=== PATIENT | male | born 1970 | race Caucasian/White ===

== ENCOUNTER 2024-11-20 06:15 | Day surgery (SDC) | payer OTHER, SELFPAY ==
[2024-11-14 13:12] VITALS: BMI 30.5
[2024-11-20] VITALS (8 sets, daily range): BP systolic 114–139; BP diastolic 72–82; PULSE 56–80; RESP 12–27; TEMP 36.2–36.8; O2SAT 94–99; BMI 28.1
[2024-11-20] MEDS: LACTATED RINGERS 1,000 ML 42 ML IV ×2 (07:02→09:10)
[2024-11-20] MEDS: ACETAMINOPHEN 325 MG TABLET 975 MG PO (07:03)
--- NOTE | 2024-11-20 07:39 | PM.PREOP ---
Pre-operative Note Interval Note History & Physical reviewed/Exam performed by Physician: Yes Changes to H&P: No ASA Class (for procedural sedation): I
[2024-11-20] MEDS: CEFAZOLIN 2 GM/100 ML PREMIX 100 ML IV (07:53)
--- NOTE | 2024-11-20 08:11 | SUR.OPER ---
Supine on padded OR bed with pink pads, head on pillow, arms padded and tucked at sides, legs uncrossed, safety belt at thigh, tape over blanket over lower legs, purple straps with torso applied.
[2024-11-20] MEDS: BUPIVACAINE 0.25% W/ EPI 30 ML VIAL INJ (08:29)
[2024-11-20] MEDS: METOCLOPRAMIDE 10 MG/2 ML INJ IV (09:09)
[2024-11-20] MEDS: hydrOXYzine 50 MG/ML INJ IM (09:10)
[2024-11-20] MEDS: ONDANSETRON 4 MG/2 ML INJ IV (09:11)
--- NOTE | 2024-11-20 09:13 | P.OP_ITS ---
Operative Date/Time/Diagnoses Date of procedure: 11/20/24 Time of procedure: 09:13 Pre-op diagnosis: Right inguinal hernia Post-op diagnosis: same (RT direct inguinal hernia) Procedure & Clinicians Procedure: Laparoscopic RT inguinal hernia repair with mesh, TEP Same procedure(s) as scheduled: Yes Indications: 54yo M, symptomatic RIH Surgeon: Jun Tang Electric Trucker: Rick Godoy Anesthesia Type: General Operative Notes Findings: Direct [facility] Closure Type: primary Specimen(s): none sent Prosthetic devices, grafts, tissues, transplants, or devices: Mesh, large, Bard Applied: none Estimated Blood Loss (mL): 5 Blood products transfused: none Procedure in detail: After informed consent and satisfactory general endotracheal anesthesia the abdomen was prepped and draped in the usual sterile manner. The patient voided in the preoperative holding area to avoid the need for Plaza catheter. Surgical time-out was performed with all team members in agreement to ensure we had the proper patient, position and procedure. The correct side was marked in the preoperative holding area. An infraumbilical incision was made with a #11 blade after injecting 0.25% Marcaine with epinephrine into the skin and subcutaneous tissues. The subcutaneous tissues were bluntly divided with Army-Bullard retractors and I scored the anterior rectus sheath lateral to the midline toward the right side. The rectus muscle was retracted laterally with S retractors and the preperitoneal space was entered and bluntly dissected with a 10 mm laparoscopic spoon. I placed an 0 Vicryl [id number] suture in the fascial opening. The 12 mm Ring trocar was inserted and the preperitoneal space was insufflated to a pressure of 15 mmHg with carbon dioxide gas. The 10 mm 30 degree lens was inserted and further dissection was carried out under direct vision. Two 5 mm trocars were inserted in the midline under direct vision. I bluntly dissected the preperitoneal space uncovering the pubic bone medially, the Ashish's ligament, the cord structures and out lateral to the ASIS. An ilioinguinal block was performed under direct vision by injecting 20 cc of 0.25% Marcaine with epinephrine 2 fingerbreadths medial to the ASIS. The patient was noted to have a moderate-sized direct inguinal hernia. This sac was dissected free and controlled using an O-PDS endoloop to minimize postoperative seroma formation. A small cord lipoma was mobilized proximally. There was no indirect inguinal hernia noted. The peritoneal edge was confidently identified and this was mobilized proximally off of the cord structures. A small branch off the inferior epigastric vessels was controlled with cautery and hemolock clips. Care was taken to preserve the inferior epigastric vessels. Once the myopectineal orifice was completely dissected I selected a large Bard 3D mesh and inserted this into the space and positioned it such that it lay flat and covered the hernia defect spaces widely. No tacking device was necessary. The mesh was held into place as the pneumoperitoneum was released and we watched the peritoneum return and hold the mesh nicely. The trocars were removed there was no bleeding noted at the trocar sites. The instrument sponge and needle counts were all correct x2. The estimated blood loss was minimal. The patient tolerated the procedure well and was extubated in the operating room and transported to the recovery area in stable condition Complications: none Post-operative Condition: stable Disposition: PACU Plan for aftercare: RTO 2 weeks No lifting for 6 weeks
== END 2024-11-20 10:20 | disposition home or self-care (01) ==
PROVIDERS: PCP Internal Medicine; Referring Provider Surgery; Visit Provider Surgery
PROC: 0YQ54ZZ Repair Right Inguinal Region, Percutaneous Endoscopic Approach (ICD-10-PCS; CPT 49650; principal; 2024-11-20 07:45)
DX: K40.90 Unilateral inguinal hernia, without obstruction or gangrene, not specified as recurrent (principal); D17.6 Benign lipomatous neoplasm of spermatic cord
CPT/HCPCS: 49650; C1781; J0330; J0690; J1100; J1885; J2405; J2704; J2765; J3010; J3410; J3490